=== PATIENT | female | born 1945 | race Native Hawaiian/Other Pacific Islander ===

== ENCOUNTER 2016-09-19 08:48 | Outpatient (CLI) | payer BC ==
[2016-09-19 09:41] LABS: PLATELET COUNT 366 K/uL (152-353)
[2016-09-19 10:01] LABS: POTASSIUM 4.2 mmol/L (3.6-5.2); SODIUM 142 mmol/L (136-145)
== END 2016-09-19 19:01 | disposition home or self-care (01) ==
LOC: LABW 08:48
PROVIDERS: Internal Medicine
DX: I10 Essential (primary) hypertension (principal)
CPT/HCPCS: 36415; 80053; 80061; 81000; 84443; 85027